=== PATIENT | male | born 1960 | race Caucasian/White ===

== ENCOUNTER → 2016-08-15 | Outpatient (CLI) | payer OTHER ==
[~2016-08-15] MED LIST: AMOX-263 PO; IBUP800T24 PO; METO-159 PO; TAMS0.4C36 PO; VERA1TAB9 PO
== END | disposition home or self-care (01) ==
LOC: Rad HDHVI 14:58
PROVIDERS: ATTEND Internal Medicine Cardiovascular Disease
DX: I42.1 Obstructive hypertrophic cardiomyopathy (principal)
CPT/HCPCS: 93306

== ENCOUNTER → 2017-02-25 | Outpatient (CLI) | payer OTHER | END | disposition home or self-care (01) | LOC: Rad HDHVI 07:51 | PROVIDERS: ATTEND Internal Medicine Cardiovascular Disease | DX: I35.0 Nonrheumatic aortic (valve) stenosis (principal) | CPT/HCPCS: 93306 ==

== ENCOUNTER → 2017-08-09 | Outpatient (CLI) | payer OTHER | END | disposition home or self-care (01) | LOC: Rad HDHVI 13:40 | PROVIDERS: ATTEND Internal Medicine Cardiovascular Disease | DX: I08.2 Rheumatic disorders of both aortic and tricuspid valves (principal); I13.0 Hypertensive heart and chronic kidney disease with heart failure and stage 1 through stage 4 chronic kidney disease, or unspecified chronic kidney disease; E11.22 Type 2 diabetes mellitus with diabetic chronic kidney disease; N18.3 Chronic kidney disease, stage 3 (moderate); I50.33 Acute on chronic diastolic (congestive) heart failure; Z95.2 Presence of prosthetic heart valve; Z79.82 Long term (current) use of aspirin | CPT/HCPCS: 93306 ==

== ENCOUNTER → 2018-08-04 | Outpatient (CLI) | payer BC | END | disposition home or self-care (01) | LOC: Rad HDHVI 08:00 | PROVIDERS: ATTEND Internal Medicine Cardiovascular Disease | DX: I08.8 Other rheumatic multiple valve diseases (principal); I42.1 Obstructive hypertrophic cardiomyopathy | CPT/HCPCS: 93306 ==

== ENCOUNTER → 2019-12-08 | Outpatient (CLI) | payer BC ==
[~2019-12-08] MED LIST changes: +VERA120T3 PO; -VERA1TAB9 PO
== END | disposition home or self-care (01) ==
LOC: Rad HDHVI 15:39
PROVIDERS: ATTEND Internal Medicine Cardiovascular Disease
DX: I08.8 Other rheumatic multiple valve diseases (principal); I50.33 Acute on chronic diastolic (congestive) heart failure; I42.1 Obstructive hypertrophic cardiomyopathy; R00.2 Palpitations
CPT/HCPCS: 93306

== ENCOUNTER 2021-01-25 06:19 | Day surgery (SDC) | payer BC ==
[2021-01-23 10:11] LABS: Eosinophils # (auto) 0.2 10 ^3/uL (0-0.8); Hemoglobin 19.1 g/dL (13.5-17.5); Lymphocytes # (auto) 1.1 10 ^3/uL (0.4-5.4); Monocytes # (auto) 0.3 10 ^3/uL (0-1.3); White Blood Cell 4.7 10^3/uL (4.4-10.8)
[2021-01-23 10:14] LABS: Basophils # (auto) 0.1 10 ^3/uL (0-0.2); Basophils % (auto) 1.2 % (0.0-2.0); Eosinophils % (auto) 3.5 % (0.0-7.0); Lymphocytes % (auto) 23.7 % (10.0-50.0); Mean Corpuscular Hemoglobin 30.4 pg (28.0-32.0); Mean Corpuscular Hgb Conc. 32.5 g/dL (32.0-36.0); Mean Corpuscular Volume 93.5 fL (80.0-100.0); Monocytes % (auto) 6.7 % (0.0-12.0); Neutrophils % (auto) 64.9 % (37.0-80.0); Nucleated Red Blood Cells % 0.3 %; Red Blood Cells 6.28 10^6/uL (4.5-5.90); Red Cell Distribution Width 16.4 % (11.8-14.3)
[2021-01-23 10:18] LABS: Hematocrit 58.8 % (41.0-53.0)
[2021-01-23 10:23] LABS: Urine Bacteria NONE SEEN /hpf (None Seen); Urine Blood Negative /uL (Negative); Urine Specific Gravity 1.015 (1.001-1.035); Urine WBC <1 /hpf (0 - 3)
[2021-01-23 10:41] LABS: Potassium 4.7 mmol/L (3.5-5.1)
[2021-01-23 11:01] LABS: Albumin 4.2 g/dL (3.4-5.0); BUN/Creatinine Ratio 22.2; Calcium 9.6 mg/dL (8.5-10.1); Total Protein 7.7 g/dL (6.4-8.2)
[~2021-01-25] VITALS: Ht 180.3 cm; Wt 93.0 kg
[~2021-01-25 06:19] MED LIST changes: -AMOX-263 PO; +ASPI1TAB20 PO; -IBUP800T24 PO; -METO-159 PO; -TAMS0.4C36 PO; +TEST200I32 IJ; -VERA120T3 PO
[2021-01-25] MEDS ORDERED: ceFAZolin 1GM/50ML 100 ML IV ONE (07:09)
[2021-01-25] MEDS ORDERED: LIDOCAINE 1%-Mpf/Epinephrine 1:200,000 ONE (07:13)
[2021-01-25] MEDS ORDERED: BUPIVACAINE 0.25% INJ 50ML VIAL ONE (07:14)
[2021-01-25] MEDS ORDERED: fentaNYL CITRATE 5 ML ONE (07:36)
[2021-01-25] MEDS ORDERED: MIDAZOLAM HCL 2MG/2ML 2ml VIAL (1mg/ml) ONE (07:36)
[2021-01-25] MEDS ORDERED: SUCCINYLCHOLINE CHLORIDE 20 MG/ML 10ML VIAL IV ONE (07:38)
[2021-01-25] MEDS ORDERED: PROPOFOL 10 MG/ML 20 ML IV ONE (07:41)
[2021-01-25] MEDS ORDERED: ONDANSETRON HCL 4 MG/2 ML VIAL ONE (07:41)
[2021-01-25] MEDS ORDERED: LIDOCAINE 2% (LOCAL ANESTH.) PF 5ml SDV ONE (07:41)
[2021-01-25] MEDS ORDERED: HYDROmorphone HCL 2 MG/ML VL IV PRN (09:00)
[2021-01-25] MEDS ORDERED: ONDANSETRON HCL 4 MG/2 ML VIAL IV PRN (09:00)
[2021-01-25 09:30] VITALS: BP 124/76
== END 2021-01-25 09:30 | disposition home or self-care (01) ==
LOC: SUR 06:19
PROVIDERS: ATTEND Surgery
DX: N62 Hypertrophy of breast (principal); I50.9 Heart failure, unspecified; Z79.82 Long term (current) use of aspirin; Z79.899 Other long term (current) drug therapy; Z98.890 Other specified postprocedural states; Z95.2 Presence of prosthetic heart valve; Z20.822 Contact with and (suspected) exposure to COVID-19
CPT/HCPCS: 19300; 36415; 80053; 81001; 85025; J0330; J0690; J2001; J2250; J2405; J2704; J3010; J3490; U0003

== ENCOUNTER → 2022-01-15 | Outpatient (CLI) | payer BC | END | disposition home or self-care (01) | LOC: Rad HDHVI 13:34 | PROVIDERS: ATTEND Internal Medicine Cardiovascular Disease | DX: I51.7 Cardiomegaly (principal); R00.2 Palpitations; E78.5 Hyperlipidemia, unspecified | CPT/HCPCS: 93306 ==

== ENCOUNTER 2022-08-09 20:51 | Inpatient (IN) | payer BC ==
[~2022-08-09] VITALS: Ht 180.3 cm; Wt 107.4 kg
[2022-08-09 21:47] LABS: Basophils # (auto) 0.1 10 ^3/uL (0-0.2); Basophils % (auto) 1.1 % (0.0-2.0); Eosinophils # (auto) 0.1 10 ^3/uL (0-0.8); Eosinophils % (auto) 1.3 % (0.0-7.0); Hematocrit 48.7 % (41.0-53.0); Hemoglobin 15.7 g/dL (13.5-17.5); Lymphocytes # (auto) 1.4 10 ^3/uL (0.4-5.4); Lymphocytes % (auto) 15.9 % (10.0-50.0); Mean Corpuscular Hemoglobin 25.4 pg (28.0-32.0); Mean Corpuscular Hgb Conc. 32.2 g/dL (32.0-36.0); Mean Corpuscular Volume 78.8 fL (80.0-100.0); Monocytes # (auto) 0.6 10 ^3/uL (0-1.3); Monocytes % (auto) 7.4 % (0.0-12.0); Neutrophils # (auto) 6.4 10 ^3/uL (1.6-8.6); Neutrophils % (auto) 74.3 % (37.0-80.0); Nucleated Red Blood Cells % 0.1 %; Red Blood Cells 6.17 10^6/uL (4.5-5.90); Red Cell Distribution Width 19.7 % (11.8-14.3); White Blood Cell 8.7 10^3/uL (4.4-10.8)
[2022-08-09] MEDS ORDERED: IOHEXOL 350 MG/ML 100ML IJ ONE (21:48)
[2022-08-09 22:04] LABS: Potassium 4.3 mmol/L (3.5-5.1)
[2022-08-09 22:12] LABS: Albumin 3.7 g/dL (3.4-5.0); BUN/Creatinine Ratio 15.8 (10.0-20.0); Bilirubin, Total 1.4 mg/dL (0.2-1.0); Calcium 9.2 mg/dL (8.5-10.1); Total Protein 6.9 g/dL (6.4-8.2)
[2022-08-09 22:22] LABS: Urine Bacteria NONE SEEN /hpf (None Seen); Urine Blood Negative /uL (Negative); Urine Specific Gravity 1.023 (1.001-1.035); Urine WBC <1 /hpf (0 - 3)
[2022-08-10] VITALS (20 sets, daily range): BP systolic 90–122; BP diastolic 47–85
[2022-08-10] MEDS ORDERED: METOPROLOL TARTRATE 25 MG TAB PO ONE (05:00)
[2022-08-10] MEDS ORDERED: SODIUM CHLORIDE 0.9% 500 ML IV ONE (05:00)
[2022-08-10] MEDS ORDERED: METOPROLOL TARTRATE 25 MG TAB PO SCH (10:00)
[2022-08-10] MEDS ORDERED: LORazepam 2MG/ML-1ML VIAL IV ONE (10:00)
[2022-08-10] MEDS ORDERED: CLOP75TA28 PO (10:25)
[2022-08-10] MEDS ORDERED: METO25TA93 PO (10:26)
[2022-08-10] MEDS ORDERED: TADA5TAB11 PO (10:28)
[2022-08-10] MEDS ORDERED: OLME20TA53 PO (10:28)
[2022-08-10] MEDS: PANTOPRAZOLE 40 MG/10 ML VIAL INJ IV SCH (10:40)
[2022-08-10] MEDS: ENOXAPARIN SOD 40 MG/0.4 ML SYRINGE SC SCH (10:40)
[2022-08-10] MEDS: FUROSEMIDE 40 MG/4 ML VIAL IV SCH ×2 (10:43→18:31)
[2022-08-10 10:49] LABS: INR 1.12 (0.9-1.15)
[2022-08-10 13:02] LABS: Magnesium 2.6 mg/dL (1.6-2.6); Phosphorus 1.9 mg/dL (2.5-4.90)
[2022-08-10] MEDS ORDERED: ADENOSINE 6 MG/2 ML INJ IV ONE ×2 (17:17→18:00)
[2022-08-10] MEDS ORDERED: MIDAZOLAM HCL 2MG/2ML 2ml VIAL (1mg/ml) ONE (17:19)
[2022-08-10] MEDS ORDERED: METOPROLOL SUCCINATE XL 50 MG TAB PO ONE (17:45)
[2022-08-10] MEDS ORDERED: MIDAZOLAM HCL 2MG/2ML 2ml VIAL (1mg/ml) IV ONE (18:00)
[2022-08-10] MEDS: ATORVASTATIN 20 MG TAB PO SCH (21:34)
[2022-08-11] VITALS (42 sets, daily range): BP systolic 90–133; BP diastolic 41–77
[2022-08-11 04:26] LABS: Albumin 3.4 g/dL (3.4-5.0); Potassium 4.3 mmol/L (3.5-5.1)
[2022-08-11 04:43] LABS: BUN/Creatinine Ratio 16.1 (10.0-20.0); Calcium 8.9 mg/dL (8.5-10.1); Total Protein 6.5 g/dL (6.4-8.2)
[2022-08-11 04:46] LABS: Basophils # (auto) 0.1 10 ^3/uL (0-0.2); Eosinophils # (auto) 0.2 10 ^3/uL (0-0.8); Lymphocytes # (auto) 1.1 10 ^3/uL (0.4-5.4); Monocytes # (auto) 0.5 10 ^3/uL (0-1.3); Neutrophils # (auto) 4.1 10 ^3/uL (1.6-8.6)
[2022-08-11 04:47] LABS: Basophils % (auto) 1.8 % (0.0-2.0); Eosinophils % (auto) 3.2 % (0.0-7.0); Hematocrit 47.7 % (41.0-53.0); Hemoglobin 15.1 g/dL (13.5-17.5); Lymphocytes % (auto) 18.6 % (10.0-50.0); Mean Corpuscular Hemoglobin 24.9 pg (28.0-32.0); Mean Corpuscular Hgb Conc. 31.7 g/dL (32.0-36.0); Mean Corpuscular Volume 78.6 fL (80.0-100.0); Neutrophils % (auto) 68.4 % (37.0-80.0); Nucleated Red Blood Cells % 0.3 %; Red Blood Cells 6.07 10^6/uL (4.5-5.90); Red Cell Distribution Width 19.6 % (11.8-14.3)
[2022-08-11] MEDS: FUROSEMIDE 40 MG/4 ML VIAL IV SCH ×2 (06:21→18:17)
[2022-08-11] MEDS: ENOXAPARIN SOD 40 MG/0.4 ML SYRINGE SC SCH (12:35)
[2022-08-11] MEDS: PANTOPRAZOLE 40 MG/10 ML VIAL INJ IV SCH (12:35)
[2022-08-11] MEDS: ASPirin-EC 81 mg tab PO SCH (12:36)
[2022-08-11] MEDS: CLOPIDOGREL BISULFATE 75 MG TAB PO SCH (12:37)
[2022-08-11] MEDS: METOPROLOL SUCCINATE XL 50 MG TAB PO SCH (12:37)
[2022-08-11] MEDS: ATORVASTATIN 20 MG TAB PO SCH (21:35)
[2022-08-12] VITALS (15 sets, daily range): BP systolic 95–153; BP diastolic 52–88
[2022-08-12 05:00] LABS: Albumin 3.3 g/dL (3.4-5.0); Calcium 8.8 mg/dL (8.5-10.1)
[2022-08-12 05:04] LABS: BUN/Creatinine Ratio 20.1 (10.0-20.0); Total Protein 6.4 g/dL (6.4-8.2)
[2022-08-12] MEDS: FUROSEMIDE 40 MG/4 ML VIAL IV SCH ×2 (06:39→17:28)
[2022-08-12] MEDS: PANTOPRAZOLE 40 MG/10 ML VIAL INJ IV SCH (10:05)
[2022-08-12] MEDS: ASPirin-EC 81 mg tab PO SCH (10:05)
[2022-08-12] MEDS: CLOPIDOGREL BISULFATE 75 MG TAB PO SCH (10:05)
[2022-08-12] MEDS: ENOXAPARIN SOD 40 MG/0.4 ML SYRINGE SC SCH (10:05)
[2022-08-12] MEDS: METOPROLOL SUCCINATE XL 50 MG TAB PO SCH (10:06)
[2022-08-12 10:47] LABS: Creatinine, Urine 23 mg/dL (30.0-125.0); Sodium Urine 101 mmol/L (40-220)
[2022-08-12] MEDS: ATORVASTATIN 20 MG TAB PO SCH (22:06)
[2022-08-13] VITALS (8 sets, daily range): BP systolic 106–140; BP diastolic 59–71
[2022-08-13] MEDS: FUROSEMIDE 40 MG/4 ML VIAL IV SCH ×2 (05:43→17:17)
[2022-08-13] MEDS: CLOPIDOGREL BISULFATE 75 MG TAB PO SCH (10:00)
[2022-08-13] MEDS: METOPROLOL SUCCINATE XL 50 MG TAB PO SCH (10:00)
[2022-08-13] MEDS: ENOXAPARIN SOD 40 MG/0.4 ML SYRINGE SC SCH (10:00)
[2022-08-13] MEDS: ASPirin-EC 81 mg tab PO SCH (10:00)
[2022-08-13] MEDS: PANTOPRAZOLE 40 MG/10 ML VIAL INJ IV SCH (10:26)
[2022-08-13] MEDS ORDERED: ANGIOMAX 250 MG VIAL IV ONE (14:06)
[2022-08-13] MEDS ORDERED: fentaNYL CITRATE 100 MCG/2 ML VL ONE (14:06)
[2022-08-13] MEDS ORDERED: MIDAZOLAM HCL 2MG/2ML 2ml VIAL (1mg/ml) ONE (14:06)
[2022-08-13] MEDS ORDERED: SODIUM CHL 0.9% 0 ML ONE (14:07)
[2022-08-13] MEDS ORDERED: LIDOCAINE 2%HCL (LOCAL ANESTH.) INJ 10ml MDV ONE (14:07)
[2022-08-13] MEDS: ATORVASTATIN 20 MG TAB PO SCH (21:01)
[2022-08-14 05:00] VITALS: BP 119/71
[2022-08-14] MEDS: FUROSEMIDE 40 MG/4 ML VIAL IV SCH (06:23)
[2022-08-14 08:30] VITALS: BP 119/73
[2022-08-14] MEDS: METOPROLOL SUCCINATE XL 50 MG TAB PO SCH (10:29)
[2022-08-14] MEDS: PANTOPRAZOLE 40 MG/10 ML VIAL INJ IV SCH (10:29)
[2022-08-14] MEDS: ASPirin-EC 81 mg tab PO SCH (10:29)
[2022-08-14] MEDS: CLOPIDOGREL BISULFATE 75 MG TAB PO SCH (10:30)
[2022-08-14] MEDS: ENOXAPARIN SOD 40 MG/0.4 ML SYRINGE SC SCH (10:30)
[2022-08-14 12:36] VITALS: BP 119/73
== END 2022-08-14 13:44 | disposition home or self-care (01) | DRG 291 ==
LOC: ER 20:51 → TELE 08-10 10:18 → ICU WEST 08-10 13:21 → TELE-WESTW 08-12 05:28
PROVIDERS: ADMIT Nurse Practitioner Family; ATTEND Internal Medicine
PROC: 5A2204Z Restoration of Cardiac Rhythm, Single (ICD-10-PCS; principal; 2022-08-10)
DX: I13.0 Hypertensive heart and chronic kidney disease with heart failure and stage 1 through stage 4 chronic kidney disease, or unspecified chronic kidney disease (principal); I50.43 Acute on chronic combined systolic (congestive) and diastolic (congestive) heart failure; I47.1 Supraventricular tachycardia; N17.9 Acute kidney failure, unspecified; I42.1 Obstructive hypertrophic cardiomyopathy; I25.110 Atherosclerotic heart disease of native coronary artery with unstable angina pectoris; D69.6 Thrombocytopenia, unspecified; E66.9 Obesity, unspecified; I49.3 Ventricular premature depolarization; N40.0 Benign prostatic hyperplasia without lower urinary tract symptoms; R73.03 Prediabetes; N18.30 Chronic kidney disease, stage 3 unspecified; I08.0 Rheumatic disorders of both mitral and aortic valves; Z68.31 Body mass index [BMI] 31.0-31.9, adult; Z79.899 Other long term (current) drug therapy; Z86.79 Personal history of other diseases of the circulatory system; Z95.2 Presence of prosthetic heart valve
CPT/HCPCS: 36415; 71045; 71046; 71275; 80053; 81001; 82570; 83036; 83735; 83880; 84100; 84300; 84484; 85025; 85610; 86850; 86900; 86901; 87081; 92960; 93005; 93306; C9113; G0378; J0153; J2001; J2250

== ENCOUNTER → 2023-08-26 | Outpatient (CLI) | payer BC ==
[~2023-08-26] MED LIST changes: +CLOP75TA28 PO; +METO25TA93 PO; +OLME20TA53 PO; +TADA5TAB11 PO
== END | disposition home or self-care (01) ==
LOC: Rad HDHVI 08:07
PROVIDERS: ATTEND Internal Medicine Cardiovascular Disease
DX: I10 Essential (primary) hypertension (principal); E78.5 Hyperlipidemia, unspecified
CPT/HCPCS: 93306

== ENCOUNTER → 2023-09-02 | Outpatient (CLI) | payer BC ==
[~2023-09-02] VITALS: Ht 180.3 cm; Wt 103.9 kg
== END | disposition home or self-care (01) ==
LOC: Rad HDHVI 13:20
PROVIDERS: ATTEND Internal Medicine Cardiovascular Disease
DX: Z01.810 Encounter for preprocedural cardiovascular examination (principal); I49.3 Ventricular premature depolarization; I42.1 Obstructive hypertrophic cardiomyopathy; I25.10 Atherosclerotic heart disease of native coronary artery without angina pectoris; I11.0 Hypertensive heart disease with heart failure; I50.33 Acute on chronic diastolic (congestive) heart failure
CPT/HCPCS: 78452; 93017; 96374; A9500

== ENCOUNTER 2025-04-26 10:06 | Outpatient (CLI) | payer BC | END 2025-04-26 17:00 | disposition home or self-care (01) | LOC: Rad HDHVI 10:06 | PROVIDERS: ATTEND Internal Medicine Cardiovascular Disease | DX: I08.2 Rheumatic disorders of both aortic and tricuspid valves (principal); I42.2 Other hypertrophic cardiomyopathy; I51.7 Cardiomegaly | CPT/HCPCS: 93306 ==